=== PATIENT | female | born 1995 | race Caucasian/White ===

== ENCOUNTER 2016-11-05 13:37 | Emergency (ER) | payer BC ==
--- NOTE | 2016-11-05 15:11 | UC ---
Complaint Female HPI - HPI Summary HPI Summary: Patient comes in complaining of sudden onset of symptoms last night that include dysuria, urinary frequency and urinary urgency. She denies any fevers or abdominal pain. States that the pain is worse at the end of urination and describes it as a sharp, cramping suprapubic pain. She also states that she has noticed pinkish discharge. She denies any lesions or any itching. She notes that these symptoms started after recent intercourse. - History Of Current Complaint Chief Complaint: UCGU Stated Complaint: URINARY Time Seen by Provider: 11/05/16 14:39 Hx Obtained From: Patient Hx Last Menstrual Period: 10/25/16 ?: No Onset/Duration: Sudden Onset - Started last night Timing: Intermittent - With urination Severity Initially: Moderate Severity Currently: Mild Character: Sharp, Cramping Aggravating Factor(s): Urination Alleviating Factor(s): Nothing Associated Signs And Symptoms: Positive: Vaginal Discharge - pinkish discharge while wiping. Negative: Fever, Back Pain - Allergies/Home Medications Allergies/Adverse Reactions: Allergies Allergy/AdvReac Type Severity Reaction Status Date / Time Miconazole [From Monistat] Allergy See Comment Verified 11/05/16 14:35 Home Medications: Home Medications Norethin Acet & Estrad-Fe [09/29 1-20 mg-Mcg] 1 tab PO DAILY 11/05/16 [ History Confirmed 11/05/16] PMH/Surg Hx/FS Hx/Imm Hx Previously Healthy: Yes - Surgical History Surgical History: Yes Surgery Procedure, Year, and Place: TONSILLECTOMY AUG 2016 - Family History Known Family History: Negative: Blood Disorder - Social History Occupation: Student Lives: Alone Alcohol Use: Weekly Substance Use Type: None Smoking Status (MU): Never Smoked Tobacco Review of Systems Constitutional: Negative Skin: Negative Eyes: Negative ENT: Negative Respiratory: Negative Cardiovascular: Negative Gastrointestinal: Negative Genitourinary: Dysuria, Hematuria, Frequency, Urgency Motor: Negative Neurovascular: Negative Musculoskeletal: Negative Neurological: Negative Psychological: Negative All Other Systems Reviewed And Are Negative: Yes Physical Exam Triage Information Reviewed: Yes Appearance: Well-Appearing, No Pain Distress, Well-Nourished Vital Signs: Initial Vital Signs Temp 98.3 F 11/05/16 14:36 Pulse 69 11/05/16 14:36 Resp 18 11/05/16 14:36 BP 124/78 11/05/16 14:36 Pulse Ox 100 11/05/16 14:36 Vital Signs Reviewed: Yes ENT Exam: Normal ENT: Positive: Normal ENT inspection, Pharynx normal, TMs normal Dental Exam: Normal Neck exam: Normal Neck: Positive: Supple, Nontender, No Lymphadenopathy Respiratory Exam: Normal Respiratory: Positive: Chest non-tender, Lungs clear, Normal breath sounds, No respiratory distress, No accessory muscle use Cardiovascular Exam: Normal Cardiovascular: Positive: RRR, No Murmur Abdominal Exam: Normal Abdomen Description: Negative: CVA Tenderness (R), CVA Tenderness (L) Musculoskeletal Exam: Normal Neurological Exam: Normal Neurological: Positive: Alert Psychological Exam: Normal Psychological: Positive: Age Appropriate Behavior Skin Exam: Normal Skin: Negative: rashes Complaint Female Dx - Differential Dx/Diagnosis Provider Diagnoses: UTI Discharge - Discharge Plan Condition: Stable Disposition: HOME Prescriptions: Nitrofurantoin Monohyd Macro [Macrobid] 100 mg PO BID #10 cap Phenazopyridine TAB* [Pyridium TAB*] 200 mdi PO TID #6 tab Patient Education Materials: Urinary Tract Infection in Women (ED) Referrals: Non Staff,Doctor [Primary Care Provider] - Additional Instructions: Call or return if you are not symptom-free within 2-3 days.
[2016-11-05 15:13] VITALS: BP 121/74
== END 2016-11-05 15:15 | disposition home or self-care (01) ==
LOC: UCCORT 13:37
DX: N39.0 Urinary tract infection, site not specified (principal); R31.9 Hematuria, unspecified; Z88.8 Allergy status to other drugs, medicaments and biological substances
CPT/HCPCS: 87077; 87086; 87186; 99212; G0463

== ENCOUNTER 2016-12-30 10:07 | Emergency (ER) | payer BC ==
[2016-12-30 12:10] VITALS: BP 103/65
--- NOTE | 2016-12-30 12:28 | UC ---
Eye Complaint HPI - HPI Summary HPI Summary: left eye drainage and redness for 2 days - History of Current Complaint Chief Complaint: UCEye Stated Complaint: EYE COMPLAINT Time Seen by Provider: 12/30/16 12:13 Hx Obtained From: Patient Hx Last Menstrual Period: 12/21/16 ?: No Onset/Duration: Sudden Onset, Lasting Days Timing: Constant Severity Initially: Mild Severity Currently: Mild Location of Injury: Conjunctiva, Sclera Character: Foreign Body Sensation Aggravating Factor(s): Eye Drops Alleviating Factor(s): Nothing Associated Signs And Symptoms: Positive: Drainage (Purulent) - Allergies/Home Medications Allergies/Adverse Reactions: Allergies Allergy/AdvReac Type Severity Reaction Status Date / Time Miconazole [From Monistat] Allergy See Comment Verified 12/30/16 12:06 PMH/Surg Hx/FS Hx/Imm Hx Previously Healthy: Yes - Surgical History Surgical History: Yes Surgery Procedure, Year, and Place: TONSILLECTOMY AUG 2016 - Family History Known Family History: Negative: Blood Disorder - Social History Alcohol Use: Weekly Substance Use Type: None Smoking Status (MU): Never Smoked Tobacco Review of Systems Constitutional: Negative Skin: Negative Eyes: Drainage, Eye Redness ENT: Negative Respiratory: Negative Cardiovascular: Negative Gastrointestinal: Negative Genitourinary: Negative Motor: Negative Neurovascular: Negative Musculoskeletal: Negative Neurological: Negative Psychological: Negative All Other Systems Reviewed And Are Negative: Yes Physical Exam Triage Information Reviewed: Yes Appearance: Well-Appearing, Well-Nourished, Pain Distress Vital Signs: Initial Vital Signs Temp 98.2 F 12/30/16 12:06 Pulse 79 12/30/16 12:06 Resp 16 12/30/16 12:06 BP 103/65 12/30/16 12:06 Pulse Ox 98 12/30/16 12:06 Vital Signs Reviewed: Yes Eye Exam: Normal Eyes: Positive: Conjunctiva Clear ENT Exam: Normal ENT: Positive: Hearing grossly normal, Pharynx normal, TMs normal Dental Exam: Normal Neck exam: Normal Neck: Positive: Supple, Nontender, No Lymphadenopathy Respiratory Exam: Normal Respiratory: Positive: Chest non-tender, Lungs clear, Normal breath sounds Cardiovascular Exam: Normal Cardiovascular: Positive: RRR, No Murmur, Pulses Normal Abdominal Exam: Normal Abdomen Description: Positive: Nontender, No Organomegaly, Soft Bowel Sounds: Positive: Present Musculoskeletal Exam: Normal Musculoskeletal: Positive: Strength Intact, ROM Intact, No Edema Neurological Exam: Normal Neurological: Positive: Alert, Muscle Tone Normal Psychological Exam: Normal Skin Exam: Normal Eye Complaint Course/Dx - Course Course Of Treatment: hx obtained, exam performed, meds reviewed, abx prescribed for conjunctivitis - Differential Dx/Diagnosis Differential Diagnosis/HQI/PQRI: Conjunctivitis, Penetrating Injury, Periorbital Cellulitis Provider Diagnoses: left eye bacterial conjunctivits Discharge - Discharge Plan Condition: Stable Disposition: HOME Patient Education Materials: Conjunctivitis (ED)
== END 2016-12-30 12:39 | disposition home or self-care (01) ==
LOC: UCCORT 10:07
DX: H10.32 Unspecified acute conjunctivitis, left eye (principal)
CPT/HCPCS: 99212; G0463